=== PATIENT | female | born 1990 | race African-American/Black ===

== ENCOUNTER 2017-06-05 18:49 | Emergency (ER) | payer OTHER, SELFPAY ==
[~2017-06-05] VITALS: Ht 165.1 cm; Wt 60.9 kg
[2017-06-05 18:50] VITALS: BP 122/70
== END 2017-06-05 21:08 | disposition home or self-care (01) ==
LOC: M ED 18:49
DX: N93.8 Other specified abnormal uterine and vaginal bleeding (principal)